=== PATIENT | male | born 1985 | race Caucasian/White ===

== ENCOUNTER 2017-03-20 07:49 | Day surgery (SDC) | payer OTHER ==
[2017-03-20] MEDS ORDERED: Dextrose 5%-Lactated Ringers 1,000 ML IV SCH (08:30)
[2017-03-20] MEDS ORDERED: Propofol 200 MG/20 ML SDV ONE ×4 (08:32→10:39)
[2017-03-20] MEDS ORDERED: Dexamethasone 4 MG/ML SDV ONE (08:32)
[2017-03-20] MEDS ORDERED: Rocuronium 50 MG/5 ML Vial ONE (08:32)
[2017-03-20] MEDS ORDERED: Ondansetron 4 MG/2 ML SDV ONE (08:32)
[2017-03-20] MEDS ORDERED: Neostigmine Methylsulfate 1 MG/ML 5 ML Syringe ONE (08:32)
[2017-03-20] MEDS ORDERED: Succinylcholine 200 MG/10 ML MDV ONE (08:32)
[2017-03-20] MEDS ORDERED: Glycopyrrolate 0.2 MG/ML 5 ML MDV ONE (08:32)
[2017-03-20] MEDS ORDERED: Bupivacaine 0.5% 50 ML MDV ONE (08:37)
[2017-03-20] MEDS ORDERED: Lidocaine 1% with EPINEPHrine 1:100,000 50 ML MDV ONE (08:37)
[2017-03-20] MEDS ORDERED: ceFAZolin 2 GM in Premix Bag 1 BAG IV ONE (08:45)
[2017-03-20] MEDS ORDERED: fentaNYL 100 MCG/2 ML SDV ONE (09:11)
[2017-03-20] MEDS ORDERED: Midazolam 1 MG/ML 2 ML SDV ONE (09:12)
[2017-03-20] MEDS ORDERED: Ketorolac 60 MG/2 ML SDV ONE (10:21)
--- NOTE | 2017-03-29 11:43 | OR ---
DATE OF PROCEDURE: 03/20/2017 PREOPERATIVE DIAGNOSIS: Left inguinal hernia. POSTOPERATIVE DIAGNOSES: 1. Indirect left inguinal hernia. 2. 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 OPERATIVE PROCEDURES: 1. Repair of left inguinal hernia with mesh-plug technique (02662). 2. Division of left ilioinguinal nerve (67425). ANESTHESIA: Local plus IV sedation. INDICATION FOR PROCEDURE: This 31-year-old is presenting with increasingly significant left inguinal hernia. After preoperative evaluation and discussion, he wished to proceed with repair with a mesh-plug technique. Potential risks including bleeding, infection, recurrence of the hernia, problems with mesh becoming infected, chronic pain after the procedure were all reviewed, and the patient wishes to proceed. Additionally, as discussed with the patient, with a mesh technique, there is a high risk of problems with the ilioinguinal nerve becoming entrapped by scar with resultant chronic pain and if this appears to be coursing over the area of the mesh, we will typically divide this to minimize chances of postoperative neuropathic pain, but this would result in a small area of cutaneous anesthesia below the incision. DETAILS OF PROCEDURE: The patient was taken to the operating room and placed in a supine position. IV sedation was administered, after which the abdomen and groin areas were prepped and draped. The left inguinal area was anesthetized with 1% lidocaine mixed with Marcaine and a standard left inguinal incision was made and carried down through the skin and subcutaneous tissue, and through the external oblique aponeurosis in line with the external ring. The cord structures were then mobilized upward. The patient was noted to have an intact floor medially, did have an obvious indirect hernia sac located on the posterior aspect of the cord structures. Cremasteric fibers were divided, and the sac was then dissected downward and turned inward toward the internal ring. Care was taken to avoid injury to the vas and the vasculature of the cord structures. A large mesh plug was then placed into the defect and affixed medially and inferiorly to the Arturo's ligament with titanium tacking screws to the underside of the conjoint tendon medially, laterally, and superiorly with horizontal mattress sutures of 0 Vicryl stitch. The flat portion of the mesh-plug system was placed and it was noted that this would cover the ilioinguinal nerve. The ilioinguinal nerve was then dissected back to the lateralmost aspect of the incision and divided. A small specimen of the nerve was sent to confirm the nerve removal. The flat portion of the mesh-plug system was then sutured lateral to the cord structures and affixed to the pubic tubercle with the same titanium tacking screw as well. Over this, then the external oblique aponeurosis was approximated with 3-0 Vicryl stitch, which included coverage of the cord structures, and the Josy's fascia with 4-0 Vicryl stitch, and the skin with 4-0 Vicryl subcuticular stitch. Dressing was applied. The patient was taken to the recovery room in a satisfactory condition. Physician diversional therapist's assistant, Pavithra Tiwari, played an essential role in assisting in this case, helping to retract structures as needed, position the patient as well as suturing and cutting sutures when indicated. Her presence improved patient safety and decreased the operative time. Duke Oliveira MD /[id number]
== END 2017-03-20 13:09 | disposition home or self-care (01) ==
LOC: JP.SDS 07:49
PROVIDERS: ATTEND Surgery
DX: K40.90 Unilateral inguinal hernia, without obstruction or gangrene, not specified as recurrent (principal); G57.82 Other specified mononeuropathies of left lower limb; G89.29 Other chronic pain
CPT/HCPCS: 49505; 64772; 88302; C1781; J0690; J1885; J2250; J2704; J3010; J7042; J0330; J1100; J2405; J2710